=== PATIENT | female | born 1980 | race Asian ===

== ENCOUNTER 2016-09-14 17:37 | Emergency (ER) | payer BC ==
[~2016-09-14] VITALS: Ht 182.9 cm; Wt 66.3 kg
[2016-09-14 20:42] VITALS: BP 117/80
== END 2016-09-14 20:42 | disposition home or self-care (01) ==
LOC: ED 17:37
DX: M54.41 Lumbago with sciatica, right side (principal); M54.2 Cervicalgia; M62.838 Other muscle spasm; R20.0 Anesthesia of skin
CPT/HCPCS: J1885